=== PATIENT | female | born 1960 | race African-American/Black ===

== ENCOUNTER 2019-01-04 09:37 | Emergency (ER) | payer OTHER ==
[2019-01-04 09:54] VITALS: BP 129/83; PULSE 73; TEMP 98.1; BMI 28.3
--- NOTE | 2019-01-04 10:34 | PDOC ---
History of Present Illness - General Chief Complaint: Pain, Acute Stated Complaint: RT. HIP PAIN Time Seen by Provider: 01/04/19 10:23 History Source: Patient Exam Limitations: No Limitations - History of Present Illness Occurred: reports: last week Severity: reports: moderate, severe Pain Location: reports: lower extremity (right hip) Past History - Travel Traveled outside of the country in the last 30 days: No Close contact w/someone who was outside of country & ill: No - Past Medical History Allergies/Adverse Reactions: Allergies Allergy/AdvReac Type Severity Reaction Status Date / Time No Known Allergies Allergy Verified 01/04/19 09:54 Home Medications: Ambulatory Orders Oxycodone HCl/Acetaminophen [Percocet 5-325 mg Tablet -] 1 - 2 tab PO Q4H PRN # 7 tablet MDD 4 01/04/19 - Suicide/Smoking/Psychosocial Hx Smoking History: Never smoked Have you smoked in the past 12 months: No Information on smoking cessation initiated: No Hx Alcohol Use: No Drug/Substance Use Hx: No Review of Systems - Review of Systems Able to Perform ROS?: Yes Is the patient limited Romansh proficient: Yes Constitutional: Yes: Symptoms Reported, See HPI. No: Fever, Malaise HEENTM: No: Symptoms Reported Respiratory: No: Symptoms reported ABD/GI: No: Symptoms Reported : No: Symptoms Reported Musculoskeletal: Yes: Symptoms Reported All Other Systems: Reviewed and Negative *Physical Exam - Vital Signs Last Vital Signs Temp Pulse Resp BP Pulse Ox 98.1 F 73 18 129/83 100 01/04/19 09:50 01/04/19 09:50 01/04/19 09:50 01/04/19 09:50 01/04/19 09:50 - Physical Exam General Appearance: Yes: Nourished, Appropriately Dressed, Apparent Distress, Moderate Distress HEENT: positive: BELA, Normal ENT Inspection, TMs Normal, Pharynx Normal Neck: positive: Supple. negative: Tender Respiratory/Chest: positive: Lungs Clear Musculoskeletal: positive: Muscle Spasm (tender to right hip joint with limited ROM/ has some scattered ). negative: Vertebral Tenderness Extremity: positive: Normal Inspection. negative: Normal Capillary Refill Integumentary: positive: Normal Color, Dry, Warm Neurologic: positive: block trader II-XII NML intact, Fully Oriented, Alert, Normal Mood/ Affect, Normal Response, Motor Strength 5/5 Progress Note - Progress Note Progress Note: acute on chronic pain - will provide 7 Percocet and encourage to seek attention at [facility]/ surgeons office today *DC/Admit/Observation/Transfer Diagnosis at time of Disposition: Hip pain, right - Discharge Dispostion Disposition: HOME Condition at time of disposition: Stable Decision to Admit order: No - Referrals - Patient Instructions Printed Discharge Instructions: DI for Hip Pain Additional Instructions: Rest, ice to area on and off for 15 minutes 4-6 times a day Avoid heavy lifting or exercise until pain and swelling is resolved or until further directed Keep area highly elevated to reduce swelling Use splints/Roel wrap as directed Followup with orthopedist in one to 2 days if not improving, if significantly improved may wait one week for followup with orthopedist May use ibuprofen every 6 hours as needed for pain - Post Discharge Activity
== END 2019-01-04 10:51 | disposition home or self-care (01) ==
LOC: JERFT 09:37
DX: M25.551 Pain in right hip (principal)
CPT/HCPCS: 99281-25